=== PATIENT | male | born 1975 | race Two or more races ===

== ENCOUNTER → 2017-01-01 | Emergency (ER) | payer SELFPAY ==
[~2017-01-01] VITALS: Ht 177.8 cm; Wt 86.0 kg
[~2017-01-01] MED LIST: BEN25 PO; CEPH500T6; DIPHENHYDRAMINE 25 MG CAP PO STA; FAMOTIDINE 20 MG TAB PO STA; MED4DP; METHYLPREDNISOLONE 125 MG INJ IM STA; PRED20TA PO
[2017-01-01 03:36] VITALS: Ht 177.8 cm; Wt 86.0 kg
--- NOTE | 2017-01-01 06:08 | ERD ---
ER Documentation Chief Complaint Date/Time DATE: 01/01/17 TIME: 06:02 Chief Complaint hives like body rashes x 1 day, itchiness HPI 41-year-old male with no significant past medical history presents the ED complaining of a rash that occurred yesterday. States that he has not used any new soaps, detergents, exposure to pets or insects. Denies eating any new foods. Denies others having the same rash. States that it is very itchy. States that he did not take any medications that caused this rash. Denies any fever, chills, abdominal pain, nausea, vomiting, diarrhea, headache, weakness, dizziness. ROS All systems reviewed and are negative except as per history of present illness. Medications Home Meds Active Scripts Prednisone* (Prednisone*) 20 Mg Tab, 40 MG PO DAILY for 4 Days, TAB Prov:DHEERAJ BARBER PA-C 01/01/17 Diphenhydramine Hcl* (Benadryl*) 25 Mg Cap, 25 MG PO Q6, #30 CAP Prov:DHEERAJ BARBER PA-C 01/01/17 Reported Medications Methylprednisolone* (Methylpred*) 4 Mg/Dose-Pack Tab.ds.pk 02/15/10 Cephalexin Monohydrate (Cephalexin) 500 Mg Tablet 02/15/10 Allergies Allergies: Coded Allergies: No Known Drug Allergy (Verified Allergy, Mild, 02/15/10) PMhx/Soc History of Surgery: No Hx Neurological Disorder: No Hx Respiratory Disorders: No Hx Cardiac Disorders: No Hx Miscellaneous Medical Probl: No (DENIES MEDICAL AND SURGICAL HX.) Hx Alcohol Use: No Hx Substance Use: No Hx Tobacco Use: No Smoking Status: Never smoker Physical Exam Vitals Vital Signs Date Time Temp Pulse Resp B/P Pulse Ox O2 Delivery O2 Flow Rate FiO2 01/01/17 03:36 98.6 104 20 115/80 98 Physical Exam Const: [id number], well-nourished. In no acute distress. Head: Atraumatic, normocephalic Eyes: Normal Conjunctiva without injection. No purulent discharge. PERRL. EOMI ENT: Normal external ear. Ear canal without erythema. Tympanic membrane pearly samuel without effusion or bulging. Nasal canal clear with normal turbinates. Moist oropharynx without tonsillar exudates. Non-erythematous pharynx. Uvula midline. No drooling. No trismus. Neck: Full range of motion. No meningismus. No cervical lymphadenopathy. Resp: Clear to auscultation bilaterally. No wheezing, rhonchi, rales, or crackles. No accessory muscle use. No retractions. Cardio: Regular rate and rhythm. No murmurs, rubs or gallops. Abd: Soft, non tender, non distended. Normal bowel sounds. No palpable masses. No rebound tenderness. No guarding. Skin: No petechiae, purpura. Diffuse convoluted erythematous blanching wheals noted on the torso of patient's body with no surrounding bleeding noted. Back: No midline tenderness. No CVA tenderness. Ext: No cyanosis, or edema. Neur: Awake and alert. Psych: Normal Mood and Affect Results 24 hrs Current Medications Medications (Trade) Dose Ordered Sig/Alex Route PRN Reason Start Time Stop Time Status Last Admin Dose Admin Diphenhydramine HCl (Benadryl) 25 mg ONCE STAT PO 01/01/17 04:46 01/01/17 04:49 DC 01/01/17 05:07 Famotidine (Pepcid) 20 mg ONCE STAT PO 01/01/17 04:46 01/01/17 04:49 DC 01/01/17 05:07 Methylprednisolone Sodium Succinate (Solu-Medrol) 125 mg ONCE STAT IM 01/01/17 04:46 01/01/17 04:49 DC 01/01/17 05:07 Procedures/MDM 41-year-old male with no significant past medical history presents the ED complaining of a rash that occurred yesterday and associated with pruritus. Patient is afebrile nontoxic appearing. Patient has normal vital signs. Patient's rash is consistent with urticaria. Patient was treated here in the ED with 125 mg IM Solu-Medrol, Benadryl, Famotidine with improvement of his symptoms. Patient is in no respiratory distress. Low suspicion for anaphylaxis. No lip swelling or tongue swelling. Other differential diagnosis include but is not limited to allergic contact dermatitis, insect bites, cutaneous candidiasis, eczema, scabies, tinea infection, psoriasis. Low suspicion for SJS/TEN, sepsis, cellulitis, erythema multiforme, necrotizing fascitis, or other emergent conditions. Discharge medications: Prednisone, Benadryl Follow up with primary care physician in 1-2 days. Instructed patient to return to the ED sooner for any worsening symptoms. Patient's questions were answered. Patient understood and agreed with discharge plan. Patient discharged stable. Departure Diagnosis: Primary Impression: Hives Condition: Stable Patient Instructions: Allergic Reaction, Other (Local), Hives Referrals: COMM[facility]ITY CLIN[facility] YOU HAVE RECEIVED A MEDICAL SCREENING EXAM AND THE RESULTS INDICATE THAT YOU DO NOT HAVE A CONDITION THAT REQUIRES URGENT TREATMENT IN THE EMERGENCY DEPARTMENT. FURTHER EVALUATION AND TREATMENT OF YOUR CONDITION CAN WAIT UNTIL YOU ARE SEEN IN YOUR DOCTORS OFFICE WITHIN THE NEXT 1-2 DAYS. IT IS YOUR RESPONSIBILITY TO MAKE AN APPOINTMENT FOR FOLOW-UP CARE. IF YOU HAVE A PRIMARY DOCTOR --you should call your primary doctor and schedule an appointment IF YOU DO NOT HAVE A PRIMARY DOCTOR YOU CAN CALL OUR PHYSICIAN REFERRAL HOTLINE AT IF YOU CAN NOT AFFORD TO SEE A PHYSICIAN YOU CAN CHOSE FROM THE FOLLOWING [facility] [address] [facility]. [facility] [address] [facility] [address] [facility] [address] [facility] [facility] [address] [facility]. [facility]. [address] [facility]. [facility] YOU HAVE RECEIVED A MEDICAL SCREENING EXAM AND THE RESULTS INDICATE THAT YOU DO NOT HAVE A CONDITION THAT REQUIRES URGENT TREATMENT IN THE EMERGENCY DEPARTMENT. FURTHER EVALUATION AND TREATMENT OF YOUR CONDITION CAN WAIT UNTIL YOU ARE SEEN IN YOUR DOCTORS OFFICE WITHIN THE NEXT 1-2 DAYS. IT IS YOUR RESPONSIBILITY TO MAKE AN APPOINTMENT FOR FOLOW-UP CARE. IF YOU HAVE A PRIMARY DOCTOR --you should call your primary doctor and schedule and appointment IF YOU DO NOT HAVE A PRIMARY DOCTOR YOU CAN CALL OUR PHYSICIAN REFERRAL HOTLINE AT . IF YOU CAN NOT AFFORD TO SEE A PHYSICIAN YOU CAN CHOSE FROM THE FOLLOWING [facility] INSTITUTIONS[facility] [address] [place] [address] [facility] [address] [place] [address] [facility] [address] [place] [address] [facility] Additional Instructions: FOLLOW UP WITH YOUR PRIMARY CARE PHYSICIAN in 2-3 days for a referral to get allergy testing.Return to this facility if you are not improving as expected. DHEERAJ BARBER PA-C Jan 01, 2017 06:08
== END | disposition home or self-care (01) ==
LOC: FTE 03:32
DX: L50.9 Urticaria, unspecified (principal)
CPT/HCPCS: 96372; 99284; J2930